=== PATIENT | male | born 1975 | race African-American/Black ===

== ENCOUNTER 2022-05-22 18:03 | Emergency (ER) | payer SELFPAY ==
[~2022-05-22] VITALS: Ht 167.6 cm; Wt 116.0 kg
[2022-05-22 19:12] VITALS: BP 153/89
[2022-05-22] MEDS ORDERED: ACETAMINOPHEN 325MG TABLET PO ONE (20:15)
[2022-05-22] MEDS ORDERED: METHOCARBAMOL 500MG TABLET PO ONE (20:15)
== END 2022-05-22 22:44 | disposition home or self-care (01) ==
LOC: ER 18:03
DX: S06.0X0A Concussion without loss of consciousness, initial encounter (principal); S09.8XXA Other specified injuries of head, initial encounter; Y08.89XA Assault by other specified means, initial encounter; Y93.89 Activity, other specified; Y92.89 Other specified places as the place of occurrence of the external cause; Y99.8 Other external cause status; Z90.49 Acquired absence of other specified parts of digestive tract; Z98.890 Other specified postprocedural states
CPT/HCPCS: 99284